=== PATIENT | female | born 1940 | race Two or more races ===

== ENCOUNTER → 2024-09-21 | Outpatient (CLI) | payer OTHER, MEDICAID, SELFPAY ==
[2024-09-21 09:22] LABS: Basophils % (Auto) 1 % (0-2.5); Eosinophils # (Auto) 0.2 Thou/mm3 (0.0-0.5); Eosinophils % (Auto) 3 % (0-10); Hematocrit 32.8 % (36.0-46.0); Hemoglobin 11.3 g/dL (12.0-16.0); Immature Granulocytes % (Auto) 0 % (0-0); Immature Granulocytes Auto 0.02 Thou/mm3 (0.00-0.00); Lymphocytes % (Auto) 31 % (10-50); Mean Corpuscular HGB Conc 34.5 g/dl (31.0-37.0); Mean Corpuscular Hemoglobin 29.6 pg (25.0-35.0); Mean Corpuscular Volume 86 fL (80-100); Monocytes # (Auto) 0.5 Thou/mm3 (0.0-0.8); Monocytes % (Auto) 8 % (0-12); Neutrophils # (Auto) 3.7 Thou/mm3 (1.8-7.7); Neutrophils % (Auto) 58 % (37-80); Nucleated Red Blood Cell % 0 /100 WBC (0); Platelet Count 189 Thou/mm3 (140-440); RDW Standard Deviation 38.9 fL (36.4-46.3); Red Blood Count 3.82 Miln/mm3 (4.00-5.20); White Blood Count 6.5 Thou/mm3 (3.6-11.0)
[2024-09-21 09:42] LABS: Cardiac Risk Estimate 3.9 RATIO (3.7-5.6); Cholesterol 210 mg/dL (132-200); HDL Cholesterol 54 mg/dL (40-60); LDL Cholesterol,Calculated 124 mg/dL (0-130); Triglycerides 159 mg/dL (30-150)
== END | disposition home or self-care (01) ==
PROVIDERS: PCP Family Medicine; Referring Provider Family Medicine; Visit Provider Family Medicine
DX: D64.9 Anemia, unspecified (principal); E78.2 Mixed hyperlipidemia
CPT/HCPCS: 36415; 80061; 85025

== ENCOUNTER → 2024-09-27 | Outpatient (CLI) | payer OTHER, MEDICAID, SELFPAY ==
--- NOTE | 2024-09-27 10:45 | XR_ITS ---
Examination:Right hip AP, lateral, AP pelvis 3 views Technique: Hip AP lateral, AP pelvis, 3 views Exam date and time:September 27, 2019 5:11 AM INDICATIONS: Right hip pain beginning 2 months ago. 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
== END | disposition home or self-care (01) ==
PROVIDERS: PCP Family Medicine; Referring Provider Family Medicine; Visit Provider Family Medicine
DX: M16.11 Unilateral primary osteoarthritis, right hip (principal); M87.851 Other osteonecrosis, right femur
CPT/HCPCS: 73502

== ENCOUNTER 2024-11-07 08:57 | Outpatient (AMB) | payer OTHER, MEDICAID, SELFPAY ==
--- NOTE | 2024-11-07 09:13 | ORTHONT_ITS ---
Vital signs 11/07/24 09:14 Height 1.52 m Height Method Stated Weight 80.343 kg Weight Measurement Method Standing Scale BMI 34.6 BP 191/74 H Blood Pressure Source Automatic Cuff Blood Pressure Location Left Upper Arm Position Sitting Respiration 19 Pulse 60 Pulse Source Monitor Temp 97.2 F Temp Source Temporal Artery Scan Pulse Oximetry (%) 98 Oxygen Delivery Method Room Air Med/Allergies Allergies & Medications Allergies hydrocodone Allergy (Verified 11/07/24 09:15) Medication Reconciliation atorvastatin 10 mg tablet 10 mg PO QDAY 11/07/24 [History Confirmed 11/07/24] celecoxib 200 mg capsule 200 mg PO QDAY 11/07/24 [History Confirmed 11/07/24] cholecalciferol (vitamin D3) 10 mcg (400 unit) capsule 10 mcg PO QDAY 11/07/24 [History Confirmed 11/07/24] ferrous sulfate 300 mg (60 mg iron)/5 mL oral liquid 150 mg PO QDAY 11/07/24 [History Confirmed 11/07/24] hydrochlorothiazide 25 mg tablet 25 mg PO Q OTHER DAY 11/07/24 [History Confirmed 11/07/24] lisinopril 40 mg tablet 40 mg PO QDAY 11/07/24 [History Confirmed 11/07/24] metoprolol succinate 100 mg tablet,extended release 24 hr 100 mg PO QDAY 11/07/24 [History Confirmed 11/07/24] omeprazole 40 mg capsule,delayed release 40 mg PO QDAY 11/07/24 [History Confirmed 11/07/24] Exam Exam Patient is in no acute distress and is cooperative with the examination today. Breathing is nonlabored. In no respiratory distress. Patient has no paraspinal tenderness. Spinal deformity cannot be appreciated. The gait of the patient is nonantalgic Bilateral extremities were evaluated and demonstrates sensation intact to light touch. Palpable pedal pulses are present. No significant edema is present. Bilateral knees were examined and the patient has full strength and range of motion.. The left hip was examined. Patient was able to flex to 90 degrees, adduct to 30 degrees, abduct to 40 degrees, internally rotate to 20 degrees, and externally rotate to 20 degrees. Patient has a negative logroll. Stinchfield is negative. The patient is nontender diffusely to touch. The right hip was examined. She can internally rotate to 0 degrees. She has pain with flexion and internal rotation. She has a positive Stinchfield positive Right hip x-rays demonstrates complete joint space loss and osteophyte Assessment and Plan Problem List (1) Arthritis of right hip: Status: Acute Plan: Patient is an 84-year-old female with right hip pain and right hip arthritis. She has a long spinal fusion and will need a dual mobility hip. We discussed nonoperative and operative options. She has failed conservative treatment and the pain is affecting her quality life and happiness. We thus considered hip replacement as a reasonable option We will get medical clearance. We discussed total hip replacement great detail. We will do it from a lateral approach and will need to mobility The nature and purpose of the total hip replacement, alternative method(s) of treatment, the material risks involved, and the possibility of complications were fully explained to the patient. The patient does NOT have any of the following contraindications to LENY: - Active infection of the hip joint, OR - Active systemic bacteremia, OR - Active skin infection or open wound at surgical site, OR - Neuropathic arthritis, OR - Severe, rapidly progressive neurological disease, OR - Severe medical condition that makes risks of the surgery outweigh the potential benefit The patient was told the most common risks and complications associated with a total hip replacement include, but are not limited to: blood clots in the leg, fatal pulmonary embolism, dislocation of the prosthesis, intraoperative and postoperative fractures of the femur or acetabulum, infection, failure of the prosthesis or grafting materials, complications from anesthesia, reactions to blood transfusions, postoperative leg length inequality, instability of the hip replacement, nerve damage or injury, vascular injury, delayed wound healing, infection, other injury or even . In addition, there are risks associated with anesthesia given during this operation. Also, the patient was told that after undergoing a total hip replacement there may still be persistent pain or disability. The patient was informed that the success of this operation in part depends upon the mechanical devices which are going to be implanted and that these devices can fail or malfunction, and may need to be repaired or replaced and there are no guarantees as to the longevity of this device or its parts and that it or its parts could fail prematurely. The patient was also notified that during the course of surgery, there may be a need to use bone graft from donors, and that any bone graft used will be carefully screened for communicable diseases, including AIDS, hepatitis, Jhonatan-Creutzfeldt, or other diseases, but despite the screening procedures, there is a small chance that they could contract one of these diseases. Finally, the patient was asked to follow completely and fully with all advice and recommended treatments, and that recovery and ultimate outcome are affected by their compliance with recommended treatment. We discussed the risks, benefits and treatment alternatives, and the patient is interested in proceeding with surgery. We will try to set this up as expeditiously as possible. Advanced Care Planning Discussion Advance care planning discussed with:: patient and child Office Procedures GNS Level of Care Nursing/Assessment Patient Status: Initial/New Patient Nursing Assessment/Reassesment: Medication Reconciliation, Update PMH in EMR and Vital Signs Coordination of Care: Complex Care and Chronic Disease 1-5, Education Complex Pt/Fam, Consent,records obtained, informed consent, 1 Ins Authorization, Lab and Imaging orders, Results/Orders obtained and Staff clarify orders New Patient Charge New Patient Point Assignment: 1124 New Patient Point Charge: EQUIPMENT OPERATION INSTRUCTOR Level 4 (2029-0646) MA Intake Visit Data Collection New Patient or Established: New Patient (never been to [facility]) Reason for Visit:: RIGHT HIP PAIN Seen by Clinical Staff ONLY (RN/MA): No Milk Pickup Driver Required: Yes PCP or OBGYN visit in last 3 months: Yes Hx Now: No Do You Feel Safe at Home: Yes Authorities Contacted: N/A Questionairres Past Medical History Past Medical History Have you ever been diagnosed with any of the following: Cardiology Problems Congestive Heart Failure: No Hypertension: Yes Respiratory Problems Chronic Obstructive Pulmonary Disease (COPD): No Genital/Urinary Problems Renal Disease: No Endocrine Problems Diabetes Mellitus Type 1: No Diabetes Mellitus Type 2: No Subjective Visit Visit for: new patient and hip (BILATERAL) Immunization / Flu Flu Vaccine in the Last 12 Months: Yes Flu Vaccine Exclusion Criteria: Already Received History of Present Illness Eileen is a pleasant 83-year-old female with right hip pain for 3 months. She had a long spinal fusion in 2013. She has tried physical therapy. She is currently taking Celebrex and acetaminophen codeine as needed. She has been using a walker or cane since the pain started.Her right hip pain is in her groin. Her left hip pain radiates from her back to her thigh. She has had no injections. X-rays were done in September. She is using a walker. Pain Pain level (0-10): 8 Pain duration: CONSTANT Pain location: outside (lateral) Pain quality: sharp, dull and aching Pain timing: night, increases with activity and stairs Associated signs & symptoms: weakness Ambulatory data Ambulatory device: walker Treatments Improvement with previous injections: No Improvement with PT: No Improvement with NSAIDS: no Review of Systems Review of Systems: All systems negative unless otherwise noted in HPI.
[2024-11-07 09:14] VITALS: BP 191/74; PULSE 60; RESP 19; TEMP 36.2; O2SAT 98; BMI 34.6
== END 2024-11-07 09:29 | disposition home or self-care (01) ==
PROVIDERS: PCP Family Medicine; Referring Provider Family Medicine; Supervising Provider Orthopaedic Surgery Adult Reconstructive Orthopaedic Surgery; Visit Provider Orthopaedic Surgery Adult Reconstructive Orthopaedic Surgery
DX: M16.11 Unilateral primary osteoarthritis, right hip (principal); M25.551 Pain in right hip; M43.20 Fusion of spine, site unspecified; I10 Essential (primary) hypertension
CPT/HCPCS: 99204; G0463

== ENCOUNTER 2024-11-21 10:10 | Outpatient (AMB) | payer OTHER, MEDICAID, SELFPAY ==
--- NOTE | 2024-11-21 10:27 | PD.ORTHCLVIS ---
Vital signs 11/21/24 10:28 Height 1.52 m Height Method Stated Weight 78.585 kg Weight Measurement Method Standing Scale BMI 34.0 BP 211/81 H Blood Pressure Source Automatic Cuff Blood Pressure Location Right Upper Arm Position Sitting Respiration 18 Pulse 65 Pulse Source Monitor Temp 96.9 F Temp Source Temporal Artery Scan Pulse Oximetry (%) 95 Oxygen Delivery Method Room Air Med/Allergies Allergies & Medications Allergies hydrocodone Allergy (Verified 11/21/24 10:29) Medication Reconciliation atorvastatin 10 mg tablet 10 mg PO QDAY 11/07/24 [History Confirmed 11/21/24] celecoxib 200 mg capsule 200 mg PO QDAY 11/07/24 [History Confirmed 11/21/24] cholecalciferol (vitamin D3) 10 mcg (400 unit) capsule 10 mcg PO QDAY 11/07/24 [History Confirmed 11/21/24] ferrous sulfate 300 mg (60 mg iron)/5 mL oral liquid 150 mg PO QDAY 11/07/24 [History Confirmed 11/21/24] hydrochlorothiazide 25 mg tablet 25 mg PO Q OTHER DAY 11/07/24 [History Confirmed 11/21/24] lisinopril 40 mg tablet 40 mg PO QDAY 11/07/24 [History Confirmed 11/21/24] metoprolol succinate 100 mg tablet,extended release 24 hr 100 mg PO QDAY 11/07/24 [History Confirmed 11/21/24] omeprazole 40 mg capsule,delayed release 40 mg PO QDAY 11/07/24 [History Confirmed 11/21/24] acetaminophen 300 mg-codeine 30 mg tablet 1 tab PO BID PRN 11/21/24 [History Confirmed 11/21/24] multivitamin (Multiple Vitamins tablet) 1 tab PO QDAY 11/21/24 [History Confirmed 11/21/24] Exam Exam Patient is in no acute distress and is cooperative with the examination today. Breathing is nonlabored. In no respiratory distress. Patient has no paraspinal tenderness. Spinal deformity cannot be appreciated. The gait of the patient is nonantalgic Bilateral extremities were evaluated and demonstrates sensation intact to light touch. Palpable pedal pulses are present. No significant edema is present. Bilateral knees were examined and the patient has full strength and range of motion.. The left hip was examined. Patient was able to flex to 90 degrees, adduct to 30 degrees, abduct to 40 degrees, internally rotate to 20 degrees, and externally rotate to 20 degrees. Patient has a negative logroll. Stinchfield is negative. The patient is nontender diffusely to touch. The right hip was examined. She can internally rotate to 0 degrees. She has pain with flexion and internal rotation. She has a positive Stinchfield positive Right hip x-rays demonstrates complete joint space loss and osteophyte Assessment and Plan Problem List (1) Arthritis of right hip: Status: Acute Plan: Patient is an 84-year-old female with right hip pain and right hip arthritis. She has a long spinal fusion and will need a dual mobility hip If we redo hip replacement. She walks and significant kyphosis. She is at high risk for dislocation. I discussed with her that is very difficult to differentiate the hip from back pathology particularly in her. I would recommend a cortisone injection primarily for diagnostic purposes. We discussed we could do a hip replacement but I want a make sure that this is the primary source of the pain and she has a long spinal fusion and pain that goes down both legs. Particularly worse on the right. I wonder how much of this is from the spine and this does concern me. Advanced Care Planning Discussion Advance care planning discussed with:: patient Office Procedures GNS Level of Care Nursing/Assessment Patient Status: Established Patient Nursing Assessment/Reassesment: Medication Reconciliation, Update PMH in EMR and Vital Signs Coordination of Care: Complex Care and Chronic Disease 1-5, Education Complex Pt/Fam, Consent,records obtained, informed consent, Results/Orders obtained and Staff clarify orders Special Needs: Language special needs Established Patient Charge Established Patient Point Assignment: 95 Established Patient Point Charge: EP Level 3 (80-115) MA Intake Visit Data Collection New Patient or Established: Established Patient (seen at [facility] within 3 years) Reason for Visit:: KNEE & HIP PAIN Seen by Clinical Staff ONLY (RN/MA): No Verbal consent obtained for Telemed visit?: No Field Instructor Required: Yes PCP or OBGYN visit in last 3 months: Yes Hx Now: No Do You Feel Safe at Home: Yes Authorities Contacted: N/A Questionairres Past Medical History Past Medical History Have you ever been diagnosed with any of the following: Cardiology Problems Congestive Heart Failure: No Hypertension: Yes Respiratory Problems Chronic Obstructive Pulmonary Disease (COPD): No Genital/Urinary Problems Renal Disease: No Endocrine Problems Diabetes Mellitus Type 1: No Diabetes Mellitus Type 2: No Subjective Visit Visit for: hip and knee Immunization / Flu Flu Vaccine in the Last 12 Months: No Flu Vaccine Exclusion Criteria: No Exclusion Criteria History of Present Illness Chief complaint: HIP AND KNEE PAIN Eileen is a pleasant 84-year-old female with right leg pain. The pain starts in the back and radiates all the way down to the foot. She had prior spine surgery in 2013. She reports that there is numbness and tingling. A lot of the pain is in the back. She reports that only some of the pain is in the groin Personal History Occupation: RETIRED [employer] PMH: BMI BMI Counceling provided: Yes Pain Pain level (0-10): 8 Pain duration: ALL DAY Pain location: anterior Pain quality: sharp, dull and aching Pain timing: increases with activity Associated signs & symptoms: weakness and stiffness Ambulatory data Ambulatory device: walker Treatments Improvement with previous injections: No Improvement with PT: No Improvement with NSAIDS: no Review of Systems Review of Systems: All systems negative unless otherwise noted in HPI.
[2024-11-21 10:28] VITALS: BP 211/81; PULSE 65; RESP 18; TEMP 36.1; O2SAT 95; BMI 34.0
== END 2024-11-21 10:51 | disposition home or self-care (01) ==
LOC: HODSRG 10:10
PROVIDERS: PCP Family Medicine; Referring Provider Family Medicine; Supervising Provider Orthopaedic Surgery Adult Reconstructive Orthopaedic Surgery; Visit Provider Orthopaedic Surgery Adult Reconstructive Orthopaedic Surgery
DX: M16.11 Unilateral primary osteoarthritis, right hip (principal); I10 Essential (primary) hypertension
CPT/HCPCS: 99213; G0463

== ENCOUNTER → 2024-12-18 | Outpatient (CLI) | payer OTHER, MEDICAID, SELFPAY ==
--- NOTE | 2024-12-18 13:00 | XR_ITS ---
Examination: Steroid injection right hip with imaging guidance Fluoroscopy . Exam date and time: 12/18/2024, 1:19 PM Informed consent provided. Fluoroscopy time: 0.7 minutes Dose: 9.84 mGy Technique: A timeout was completed verifying correct patient, procedure, site, positioning. The patient was placed in supine position appropriate for the steroid injection The patient's site was prepped and draped in sterile fashion 5 cc 1% lidocaine administered locally for anesthesia. Sterile drape applied, maximum barrier sterile technique. Utilizing fluoroscopic guidance, 23-gauge needle placed in the right hip joint 1 cc Triamcinalone in 5 cc 0.25% Marcaine introduced into the right hip joint The patient was in satisfactory and stable condition on completion of the procedure Attending radiologist was present for the entire procedure Estimated blood loss 0 cc. Impression: Successful right hip steroid injection with imaging guidance .
[2024-12-18] MEDS: LIDOCAINE INJ PF 1% 30 ML VIAL INFL (14:23)
[2024-12-18] MEDS: BUPIVACAINE MPF 0.5% 30 ML VIAL EPID (14:23)
[2024-12-18] MEDS: TRIAMCINOLONE ACET INJ 40 MG/ML VIAL IARTICULAR (14:23)
== END | disposition home or self-care (01) ==
PROVIDERS: PCP Family Medicine; Referring Provider Orthopaedic Surgery Adult Reconstructive Orthopaedic Surgery; Visit Provider Orthopaedic Surgery Adult Reconstructive Orthopaedic Surgery
DX: M25.551 Pain in right hip (principal)
CPT/HCPCS: 20610; 77002; J3301; J3490

== ENCOUNTER 2025-01-02 09:15 | Outpatient (AMB) | payer OTHER, MEDICAID, SELFPAY ==
[2025-01-02 09:31] VITALS: BP 193/64; PULSE 57; RESP 18; TEMP 36.8; O2SAT 99; BMI 34.2
--- NOTE | 2025-01-02 09:31 | ORTHONT_ITS ---
Vital signs 01/02/25 09:31 Height 1.52 m Height Method Stated Weight 78.982 kg Weight Measurement Method Standing Scale BMI 34.2 BP 193/64 H Blood Pressure Source Automatic Cuff Blood Pressure Location Right Upper Arm Position Sitting Respiration 18 Pulse 57 L Pulse Source Monitor Temp 98.3 F Temp Source Oral Pulse Oximetry (%) 99 Oxygen Delivery Method Room Air Med/Allergies Allergies & Medications Allergies hydrocodone Allergy (Verified 01/02/25 09:32) Medication Reconciliation atorvastatin 10 mg tablet 10 mg PO QDAY 11/07/24 [History Confirmed 01/02/25] celecoxib 200 mg capsule 200 mg PO QDAY 11/07/24 [History Confirmed 01/02/25] cholecalciferol (vitamin D3) 10 mcg (400 unit) capsule 10 mcg PO QDAY 11/07/24 [History Confirmed 01/02/25] ferrous sulfate 300 mg (60 mg iron)/5 mL oral liquid 150 mg PO QDAY 11/07/24 [History Confirmed 01/02/25] hydrochlorothiazide 25 mg tablet 25 mg PO Q OTHER DAY 11/07/24 [History Confirmed 01/02/25] lisinopril 40 mg tablet 40 mg PO QDAY 11/07/24 [History Confirmed 01/02/25] metoprolol succinate 100 mg tablet,extended release 24 hr 100 mg PO QDAY 11/07/24 [History Confirmed 01/02/25] omeprazole 40 mg capsule,delayed release 40 mg PO QDAY 11/07/24 [History Confirmed 01/02/25] acetaminophen 300 mg-codeine 30 mg tablet 1 tab PO BID PRN 11/21/24 [History Confirmed 01/02/25] multivitamin (Multiple Vitamins tablet) 1 tab PO QDAY 11/21/24 [History Confirmed 01/02/25] Exam Exam Patient is in no acute distress and is cooperative with the examination today. Breathing is nonlabored. In no respiratory distress. Patient has no paraspinal tenderness. Spinal deformity cannot be appreciated. The gait of the patient is nonantalgic Bilateral extremities were evaluated and demonstrates sensation intact to light touch. Palpable pedal pulses are present. No significant edema is present. Bilateral knees were examined and the patient has full strength and range of motion.. The left hip was examined. Patient was able to flex to 90 degrees, adduct to 30 degrees, abduct to 40 degrees, internally rotate to 20 degrees, and externally rotate to 20 degrees. Patient has a negative logroll. Stinchfield is negative. The patient is nontender diffusely to touch. The right hip was examined. She can internally rotate to 0 degrees. She has pain with flexion and internal rotation. She has a positive Stinchfield positive Right hip x-rays demonstrates complete joint space loss and osteophyte. She has extensive spine hardware and has compression fractures in her spine above the level of the fusion Assessment and Plan Problem List (1) Arthritis of right hip: Status: Acute Plan: Patient is an 84-year-old female with right hip pain and right hip arthritis. She has a long spinal fusion and will need a dual mobility hip If we redo hip replacement. She walks and significant kyphosis. She is at high risk for dislocation. I discussed with her that is very difficult to differentiate the hip from back pathology particularly in her. I discussed with her that a total hip replacement is a possible option but that she is at high risk for complications. We discussed with her that her blood pressure is in the 200s and she should see her primary care doctor as this is occurred in the multiple sessions with us. She walks with significant kyphosis and is at high risk for dislocation. I do wonder whether a total hip replacement would be too high risk for her given her multiple compression fractures, her kyphosis, her long spinal fusion, and the fact that a lot of her pain appears to be localized in the back. Advanced Care Planning Discussion Advance care planning discussed with:: patient and child Office Procedures GNS Level of Care Nursing/Assessment Patient Status: Established Patient Nursing Assessment/Reassesment: Medication Reconciliation, Update PMH in EMR and Vital Signs Coordination of Care: Complex Care and Chronic Disease 1-5, Education Complex Pt/Fam, Consent,records obtained, informed consent, Results/Orders obtained and Staff clarify orders Special Needs: Language special needs Established Patient Charge Established Patient Point Assignment: 95 Established Patient Point Charge: EP Level 3 (80-115) MA Intake Visit Data Collection New Patient or Established: Established Patient (seen at [facility] within 3 years) Reason for Visit:: F/U HIP INJECTION Seen by Clinical Staff ONLY (RN/MA): No Verbal consent obtained for Telemed visit?: No Hospice Clinical Marketer Required: Yes PCP or OBGYN visit in last 3 months: Yes Hx Now: No Do You Feel Safe at Home: Yes Authorities Contacted: N/A Questionairres Past Medical History Past Medical History Have you ever been diagnosed with any of the following: Cardiology Problems Congestive Heart Failure: No Hypertension: Yes Respiratory Problems Chronic Obstructive Pulmonary Disease (COPD): No Genital/Urinary Problems Renal Disease: No Endocrine Problems Diabetes Mellitus Type 1: No Diabetes Mellitus Type 2: No Subjective Visit Visit for: follow up visit, hip and injections Immunization / Flu Flu Vaccine in the Last 12 Months: Yes Flu Vaccine Exclusion Criteria: Already Received History of Present Illness Chief complaint: F/U HIP INJECTION Date of injury / onset of symptoms: 12/18/24 CHAPARRITA Arellano is a pleasant 84-year-old female with right leg pain. The pain starts in the back and radiates all the way down to the foot. She had prior spine surgery in 2013. She reports that there is numbness and tingling. A lot of the pain is in the back. She reports that only some of the pain is in the groin. She had a recent hip injection and reports mild relief of pain Personal History Occupation: [employer] PMH: BMI BMI Counceling provided: Yes Pain Pain level (0-10): 8 Pain duration: ALL DAY Pain location: groin Pain quality: sharp, dull and aching Pain timing: increases with activity Associated signs & symptoms: numbness and stiffness Ambulatory data Ambulatory device: cane Treatments Number of previous injections: 1 Improvement with previous injections: No Improvement with PT: No Improvement with NSAIDS: no Review of Systems Review of Systems: All systems negative unless otherwise noted in HPI.
== END 2025-01-02 10:01 | disposition home or self-care (01) ==
PROVIDERS: PCP Family Medicine; Referring Provider Family Medicine; Supervising Provider Orthopaedic Surgery Adult Reconstructive Orthopaedic Surgery; Visit Provider Orthopaedic Surgery Adult Reconstructive Orthopaedic Surgery
DX: M16.11 Unilateral primary osteoarthritis, right hip (principal); I10 Essential (primary) hypertension
CPT/HCPCS: 99213; G0463

== ENCOUNTER → 2025-02-01 | Outpatient (CLI) | payer OTHER, SELFPAY ==
[2025-02-01 09:12] LABS: Collection Type, Urine Clean Catch
[2025-02-01 09:39] LABS: Basophils % (Auto) 0 % (0-2.5); Eosinophils % (Auto) 0 % (0-10); Hematocrit 29.9 % (36.0-46.0); Hemoglobin 10.4 g/dL (12.0-16.0); Immature Granulocytes % (Auto) 0 % (0-0); Immature Granulocytes Auto 0.02 Thou/mm3 (0.00-0.00); Lymphocytes # (Auto) 1.3 Thou/mm3 (1.0-4.8); Lymphocytes % (Auto) 24 % (10-50); Mean Corpuscular HGB Conc 34.8 g/dl (31.0-37.0); Mean Corpuscular Hemoglobin 30.1 pg (25.0-35.0); Mean Corpuscular Volume 86 fL (80-100); Monocytes # (Auto) 0.3 Thou/mm3 (0.0-0.8); Monocytes % (Auto) 6 % (0-12); Neutrophils # (Auto) 3.9 Thou/mm3 (1.8-7.7); Neutrophils % (Auto) 70 % (37-80); Nucleated Red Blood Cell % 0 /100 WBC (0); Platelet Count 180 Thou/mm3 (140-440); RDW Standard Deviation 39.4 fL (36.4-46.3); Red Blood Count 3.46 Miln/mm3 (4.00-5.20); White Blood Count 5.7 Thou/mm3 (3.6-11.0)
[2025-02-01 09:47] LABS: Bilirubin,Urine Negative (Negative); Blood,Urine Negative (Negative); Clarity,Urine Clear (Clear/Hazy); Color,Urine Lt-Yellow (Lt Yel-Yel); Glucose, Urine Negative (Negative); Ketones,Urine Negative (Negative); Leukocyte Esterase,Urine Negative (Negative); Nitrite,Urine Negative (Negative); Protein,Urine Negative (Neg - Trace); RBC,Urine 9 /hpf (0-3); Specific Gravity,Urine 1.021 (1.001-1.035); Squamous Epithelial Cell,Urine 1 /hpf (0-5); Urobilinogen,Urine Negative mg/dL (0.0-1.0); WBC,Urine 3 /hpf (0-5)
[2025-02-01 09:57] LABS: Alanine Aminotransferase 11 U/L (10-49); Albumin, Serum 4.4 gm/dL (3.4-4.8); Albumin/Globulin Ratio 1.6 (1.2-2.2); Alkaline Phosphatase 112 U/L (46-116); Anion Gap 11 (7-16); Aspartate Amino Transferase 23 U/L (0-34); BUN/Creatinine Ratio 24 Ratio (12-20); Bilirubin,Total 0.6 mg/dL (0.3-1.2); Blood Urea Nitrogen 22 mg/dL (9-23); Carbon Dioxide 27.2 mMol/L (20.0-31.0); Chloride 105 mMol/L (98-107); Creatinine (Component) 0.9 mg/dL (0.6-1.3); Globulin 2.7 gm/dL (2.3-3.5); Glucose 114 mg/dL (74-106); Osmolality,Calculated 289 (275-295); Potassium 4.3 mMol/L (3.4-5.1); Sodium 143 mMol/L (136-145); Thyroid Stimulating Hormone 1.94 uIU/mL (0.55-4.78); Total Protein 7.1 gm/dL (5.7-8.2); eGFR > 60 See Note
[2025-02-01 10:02] LABS: Ferritin 1298 ng/mL (7.3-270.7); Iron 51 mcg/dL (50-170)
== END | disposition home or self-care (01) ==
PROVIDERS: PCP Family Medicine; Referring Provider Family Medicine; Visit Provider Family Medicine
DX: D64.9 Anemia, unspecified (principal); I10 Essential (primary) hypertension
CPT/HCPCS: 36415; 80053; 81001; 82728; 83540; 84443; 85025

== ENCOUNTER 2025-02-02 06:41 | Day surgery (SDC) | payer OTHER, SELFPAY ==
--- NOTE | 2025-02-01 07:00 | EKG_ITS ---
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
[2025-02-01 12:05] LABS: Basophils % (Auto) 0 % (0-2.5); Eosinophils % (Auto) 1 % (0-10); Hematocrit 29.8 % (36.0-46.0); Hemoglobin 10.5 g/dL (12.0-16.0); Immature Granulocytes % (Auto) 0 % (0-0); Immature Granulocytes Auto 0.02 Thou/mm3 (0.00-0.00); Lymphocytes # (Auto) 1.7 Thou/mm3 (1.0-4.8); Lymphocytes % (Auto) 27 % (10-50); Mean Corpuscular HGB Conc 35.2 g/dl (31.0-37.0); Mean Corpuscular Hemoglobin 30.3 pg (25.0-35.0); Mean Corpuscular Volume 86 fL (80-100); Monocytes # (Auto) 0.4 Thou/mm3 (0.0-0.8); Monocytes % (Auto) 6 % (0-12); Neutrophils # (Auto) 4.2 Thou/mm3 (1.8-7.7); Neutrophils % (Auto) 66 % (37-80); Nucleated Red Blood Cell % 0 /100 WBC (0); Platelet Count 199 Thou/mm3 (140-440); RDW Standard Deviation 39.4 fL (36.4-46.3); Red Blood Count 3.47 Miln/mm3 (4.00-5.20); White Blood Count 6.3 Thou/mm3 (3.6-11.0)
[2025-02-01 12:13] LABS: Partial Thromboplastin Time 26.5 Seconds (22.0-36.0); Prothrombin Time 11.1 Seconds (9.0-12.2)
[2025-02-01 12:14] LABS: Anion Gap 10 (7-16); BUN/Creatinine Ratio 21 Ratio (12-20); Blood Urea Nitrogen 21 mg/dL (9-23); Calcium 8.8 mg/dL (8.3-10.6); Carbon Dioxide 26.9 mMol/L (20.0-31.0); Chloride 105 mMol/L (98-107); Glucose 172 mg/dL (74-106); Osmolality,Calculated 290 (275-295); Potassium 4.2 mMol/L (3.4-5.1); Sodium 142 mMol/L (136-145); eGFR 56 See Note
[2025-02-02] VITALS (20 sets, daily range): BP systolic 140–227; BP diastolic 51–92; PULSE 68–85; RESP 12–20; TEMP 36.3–36.9; O2SAT 94–100; BMI 34.2
[2025-02-02] MEDS: Lisinopril 20 MG TABLET 40 MG PO (07:47)
[2025-02-02] MEDS: LABETALOL INJ 5 MG/ML VIAL 20 ML 10 MG IVP ×2 (07:48→07:55)
[2025-02-02] MEDS: hydrALAZINE INJ 20 MG/ML VIAL 10 MG IVP (08:50)
--- NOTE | 2025-02-02 09:24 | ESOP_ITS ---
RE: JIHAN CÁRDENAS : 1940 DATE OF OPERATION: 02/02/2025 PROCEDURE PERFORMED: 1. Diagnostic left heart cardiac catheterization, selective coronary angiogram, and left ventricular angiogram, CPT code 38745. 2. Conscious sedation 30-minute duration. 3. Ultrasound-guided access right radial artery. DIAGNOSES: Angina pectoris, abnormal stress test, and hypertension. HISTORY AND INDICATIONS: The patient is an 84-year-old pleasant lady with past history of hypertension, has recurrent episodes of shortness of breath, chest pressure. Cardiac stress test was abnormal. Nuclear scan was abnormal. Since coronary angiogram was recommended to assess the patient is candidate for coronary intervention and revascularization. DESCRIPTION OF PROCEDURE: The patient was brought to cardiac catheterization laboratory where she was given 2 mg Versed and 50 mcg fentanyl for conscious sedation. Right radial approach was taken. Right radial artery cannulated by micropuncture technique and 6-[place] was introduced. Selective right and left coronary angiogram performed by a TIG-4 diagnostic catheter. Left heart catheterization and left ventricular angiogram performed with a TIG-4 diagnostic catheter. The patient tolerated the procedure well. No complications. The patient was given radial cocktail with 200 mcg of nitroglycerin and verapamil 2.5 mg and heparin 2000 units. Coronary angiogram showed following findings. Right coronary artery is large and dominant showed evidence of mild to moderate plaque in the proximal segment. No significant stenosis. It gives off posterior descending artery is a codominant artery. Left coronary system: Left main coronary artery is normal. Left anterior descending artery separate origin, appears normal. No significant stenosis. Circumflex artery is large codominant gives off several posterolateral branches up to the major branch. All of them appear normal. Left ventricular angiogram showed normal ejection fraction 70%. Left ventricular pressure is recorded to be 160. Diastolic pressure is 10. Aortic pressure is 160/80. No gradient across the aortic valve. SUMMARY OF FINDINGS AND SUGGESTIONS: 1. Mild atherosclerotic plaque involving the right coronary artery, nonobstructive epicardial coronary arteries. 2. Codominant right coronary artery 3. Normal left ventricular function. Ejection fraction is 70%. RECOMMENDATIONS: Continue maximum medical management. Prognosis is excellent. She has severe hypertension. Recommend continue lisinopril 40 mg daily along with metoprolol and hydrochlorothiazide and add amlodipine 5 mg daily if necessary for control of hypertension. DT: 08:47:13 TT: 09:16:00 Ref: [id number] - TID: [id number] MTDD
--- NOTE | 2025-02-02 13:56 | PC.LAC ---
0844 patient is awake, alert, breathing unlabored, s/p LHC by Dr. Abraham, TR band present to right wrist, no bleeding or hematoma noted. report received from Micaela LUEVANO, patient to recover for 3 hours and 1hr post TR band removal. Hydralazine ordered by MD if SBP over 170. BP is currently 180/71, will give hydralazine 10mg IVP. 0850 hydralazine given IVP 0945 2ml air removed from TR band since hemostasis time 0840 1045 TR band removed no bleeding or hematoma noted 1218 patient is awake, alert, breathing unlabored, dresssing to right wrist dry with no bleeding or hematoma, patient able to tolerate food tray with no nausea or vomiting, patient able to ambulate to bathroom and void, meets discharge criteria, discharge instructions given to patient and family, patient discharged home in wheelchair with all belongings including walker.
== END 2025-02-02 12:18 | disposition home or self-care (01) ==
PROVIDERS: PCP Family Medicine; Referring Provider Internal Medicine Cardiovascular Disease; Visit Provider Internal Medicine Cardiovascular Disease
PROC: (CPT 93458; principal; 2025-02-02 07:30)
DX: I25.118 Atherosclerotic heart disease of native coronary artery with other forms of angina pectoris (principal); I10 Essential (primary) hypertension; Z01.810 Encounter for preprocedural cardiovascular examination
CPT/HCPCS: 93458; 36415; 80048; 85025; 85610; 85730; 93005; 99152; A4649; C1769; C1887; C1894; J0153; J0171; J0282; J0360; J0461; J1643; J2250; J2310; J2371; J3010; J3490; Q9967; A9270; J1920; J2305

== ENCOUNTER → 2025-03-13 | Outpatient (CLI) | payer OTHER, SELFPAY ==
--- NOTE | 2025-03-13 12:23 | XR_ITS ---
Examination: Ribs, left, unilateral for views Exam date and time: March 13, 2025 1237 hours INDICATIONS: Patient fell yesterday with injury to the left chest left rib pain Findings: No pneumothorax Prominent osteopenia Acute fracture left 11th rib anteriorly with minimal offset Impression: Acute fracture left 11th rib anteriorly with minimal offset
--- NOTE | 2025-03-13 12:23 | XR_ITS ---
Examination: AP lateral chest 2 views TECHNIQUE: Upright AP lateral chest 2 views Date and time: March 13, 2025 1239 hours INDICATIONS: Upper back and left-sided rib and chest pain after falling yesterday FINDINGS: Mild enlargement cardiac contour No pneumothorax Prominent osteopenia No acute clavicle or rib fractures or thoracic fracture is noted IMPRESSION: No pneumothorax pulmonary contusion or hemothorax Clavicles ribs appear intact
--- NOTE | 2025-03-13 12:24 | XR_ITS ---
Examination: Thoracic spine 3 views Technique one AP lateral coned lateral upper dorsal spine 3 views Exam date and time: March 13, 2025 1241 hours INDICATIONS: Patient fell yesterday with injury to the upper back, upper back pain. FINDINGS: Severe osteopenia No acute thoracic fracture Moderate diffuse thoracic degenerative disc disease IMPRESSION: No acute thoracic fracture
== END | disposition home or self-care (01) ==
PROVIDERS: PCP Family Medicine; Referring Provider Family Medicine; Visit Provider Family Medicine
DX: S22.32XA Fracture of one rib, left side, initial encounter for closed fracture (principal); S29.9XXA Unspecified injury of thorax, initial encounter; W19.XXXA Unspecified fall, initial encounter
CPT/HCPCS: 71046; 71100; 72072

== ENCOUNTER → 2025-04-30 | Outpatient (CLI) | payer OTHER, SELFPAY ==
[2025-04-30 08:56] LABS: Basophils # (Auto) 0.0 Thou/mm3 (0.0-0.2); Basophils % (Auto) 1 % (0-2.5); Eosinophils # (Auto) 0.1 Thou/mm3 (0.0-0.5); Eosinophils % (Auto) 3 % (0-10); Hematocrit 34.0 % (36.0-46.0); Hemoglobin 11.2 g/dL (12.0-16.0); Immature Granulocytes Auto 0.03 Thou/mm3 (0.00-0.00); Lymphocytes # (Auto) 1.6 Thou/mm3 (1.0-4.8); Lymphocytes % (Auto) 30 % (10-50); Mean Corpuscular HGB Conc 32.9 g/dl (31.0-37.0); Mean Corpuscular Hemoglobin 30.1 pg (25.0-35.0); Mean Corpuscular Volume 91 fL (80-100); Monocytes # (Auto) 0.4 Thou/mm3 (0.0-0.8); Monocytes % (Auto) 8 % (0-12); Neutrophils # (Auto) 3.1 Thou/mm3 (1.8-7.7); Neutrophils % (Auto) 58 % (37-80); Nucleated Red Blood Cell # 0.00 Thou/mm3 (0.00-0.00); Nucleated Red Blood Cell % 0 /100 WBC (0); Platelet Count 184 Thou/mm3 (140-440); RDW Standard Deviation 42.8 fL (36.4-46.3); Red Blood Count 3.72 Miln/mm3 (4.00-5.20); White Blood Count 5.4 Thou/mm3 (3.6-11.0)
[2025-04-30 09:17] LABS: Cardiac Risk Estimate 3.8 RATIO (3.7-5.6); Cholesterol 180 mg/dL (132-200); HDL Cholesterol 48 mg/dL (40-60); LDL Cholesterol,Calculated 83 mg/dL (0-130); Triglycerides 246 mg/dL (30-150)
== END | disposition home or self-care (01) ==
LOC: COPL 07:57
PROVIDERS: PCP Family Medicine; Referring Provider Family Medicine; Visit Provider Family Medicine
DX: D64.9 Anemia, unspecified (principal); E78.2 Mixed hyperlipidemia
CPT/HCPCS: 36415; 80061; 85025

== ENCOUNTER → 2025-07-27 | Outpatient (CLI) | payer OTHER, MEDICAID, SELFPAY ==
[2025-07-27 14:14] LABS: Basophils # (Auto) 0.0 Thou/mm3 (0.0-0.2); Basophils % (Auto) 1 % (0-2.5); Eosinophils # (Auto) 0.1 Thou/mm3 (0.0-0.5); Eosinophils % (Auto) 2 % (0-10); Hematocrit 31.9 % (36.0-46.0); Hemoglobin 10.7 g/dL (12.0-16.0); Immature Granulocytes Auto 0.01 Thou/mm3 (0.00-0.00); Lymphocytes # (Auto) 1.8 Thou/mm3 (1.0-4.8); Lymphocytes % (Auto) 32 % (10-50); Mean Corpuscular HGB Conc 33.5 g/dl (31.0-37.0); Mean Corpuscular Hemoglobin 30.8 pg (25.0-35.0); Mean Corpuscular Volume 92 fL (80-100); Monocytes # (Auto) 0.5 Thou/mm3 (0.0-0.8); Monocytes % (Auto) 8 % (0-12); Neutrophils # (Auto) 3.2 Thou/mm3 (1.8-7.7); Neutrophils % (Auto) 57 % (37-80); Nucleated Red Blood Cell # 0.00 Thou/mm3 (0.00-0.00); Nucleated Red Blood Cell % 0 /100 WBC (0); Platelet Count 207 Thou/mm3 (140-440); RDW Standard Deviation 42.0 fL (36.4-46.3); Red Blood Count 3.47 Miln/mm3 (4.00-5.20); White Blood Count 5.6 Thou/mm3 (3.6-11.0)
[2025-07-27 14:38] LABS: Ferritin 1175 ng/mL (7.3-270.7); Iron 75 mcg/dL (50-170); Percent Iron Saturation 27 % (20-55); Total Iron Binding Capacity 273 mcg/dL (250-425); Unsaturated Iron Binding 198 (225-295)
[2025-07-27 14:39] LABS: Vitamin B12 838 pg/mL (211-911)
== END | disposition home or self-care (01) ==
LOC: COPL 12:52
PROVIDERS: PCP Family Medicine; Referring Provider Family Medicine; Visit Provider Family Medicine
DX: D64.9 Anemia, unspecified (principal)
CPT/HCPCS: 36415; 82607; 82728; 83540; 83550; 85025

== ENCOUNTER 2025-07-30 12:34 | Day surgery (SDC) | payer OTHER, MEDICAID, SELFPAY ==
[2025-07-27 13:12] VITALS: BMI 30.9
[2025-07-30] VITALS (16 sets, daily range): BP systolic 134–229; BP diastolic 50–101; PULSE 80–107; RESP 14–24; TEMP 36.3–36.4; O2SAT 99–100; BMI 30.8
[2025-07-30] MEDS: hydrALAZINE INJ 20 MG/ML VIAL 10 MG IVP ×2 (12:26→13:28)
[2025-07-30] MEDS: fentaNYL CIT INJ 50 mCg/ML AMP 2ML (ASD USE ONLY) IVP (13:26)
[2025-07-30] MEDS: SODIUM CHLORIDE 0.9% 500 ML 500 ML 20 ML IV (13:27)
[2025-07-30] MEDS: MIDAZOLAM INJ 1 MG/ML VIAL 2 ML (ASD USE ONLY) 2 MG IVP (13:28)
[2025-07-30] MEDS: BENZOCAINE 20% (Hurricaine) SPRAY 1 DOSE TOP (13:30)
--- NOTE | 2025-07-30 14:48 | SUR.PHASEII ---
1405 Pt more awake and alert. Via Faroese speaker-pt denies pain, N/V or difficulty swallowing. Abd remains soft. Pt marily po fluids. 1430 Pt assessment unchanged. No complaints. Pt assisted with getting dressed. Has difficulty with walking, bilat knee replacements done. Pt and daughter given dc instructions. Daughter, Yeimy, interpreting per pts request. Both state understanding. pt meets dc criteria-to home.
== END 2025-07-30 14:30 | disposition home or self-care (01) ==
PROVIDERS: PCP Family Medicine; Referring Provider Specialist; Visit Provider Specialist
PROC: 0DBE8ZX Excision of Large Intestine, Via Natural or Artificial Opening Endoscopic, Diagnostic (ICD-10-PCS; CPT 45380; principal; 2025-07-30 11:30)
PROC: (CPT 43239; 2025-07-30 11:30)
DX: K57.30 Diverticulosis of large intestine without perforation or abscess without bleeding (principal); D50.9 Iron deficiency anemia, unspecified; I10 Essential (primary) hypertension; E78.5 Hyperlipidemia, unspecified; Z79.899 Other long term (current) drug therapy
CPT/HCPCS: 45378; A4649; C1769; J0360; J1200; J2250; J3010; J7999; A9270